=== PATIENT | female | born 1950 | race Caucasian/White ===

== ENCOUNTER 2018-05-16 16:32 | Emergency (ER) | payer MEDICARE ==
[2018-05-16] MEDS ORDERED: NS 0.9% 1000 ML* 1,000 ML IV ONE (16:43)
[2018-05-16] MEDS ORDERED: NS 0.9% 1000 ML*IV.FLUID IV ONE (16:43)
--- NOTE | 2018-05-16 16:50 | ED ---
Shortness of Breath - HPI Summary HPI Summary: This is scribe Brittney Keller documenting for attending Deepak Sue MD. Pt is a 67 y/o female BIBA who presents to ED c/o SOB. She states after walking up the brock stairs at [facility], she became SOB with wheezing, fatigued, and diaphoretic. Pt states she felt like she was going to pass out. She denies any cough or CP. Pt was hypotensive upon EMS arrival, and was given Duoneb treatment by them. Her symptoms have since improved, but she still feels SOB. PMHx asthma. Pt is a former smoker. - History of Current Complaint Chief Complaint: EDShortnessOfBreath Time Seen by Provider: 05/16/18 16:37 Hx Obtained From: Patient Onset/Duration: Sudden Onset, Still Present Dyspnea At: Rest Aggrevating Factors: Other - Exertion- climbing stairs Alleviating Factors: Bronchodilators Associated Signs & Symptoms: Diaphoresis - Allergy/Home Medications Allergies/Adverse Reactions: Allergies Allergy/AdvReac Type Severity Reaction Status Date / Time acetaminophen [From Tylenol] Allergy Shortness Verified 05/16/18 16:39 of Breath aspirin Allergy Shortness Verified 05/16/18 16:39 of Breath Sulfa (Sulfonamide Allergy Shortness Verified 05/16/18 16:39 Antibiotics) of Breath PMH/Surg Hx/FS Hx/Imm Hx Respiratory History: Reports: Hx Asthma Musculoskeletal History: Reports: Hx Back Problems Infectious Disease History: No Infectious Disease History: Denies: Traveled Outside the [place] in Last 30 Days - Family History Known Family History: Negative: Hypertension - Social History Alcohol Use: Rare Substance Use Type: Reports: None Smoking Status (MU): Former Smoker Review of Systems Positive: Fatigue, Skin Diaphoresis Negative: Chest Pain Positive: Shortness Of Breath. Negative: Cough All Other Systems Reviewed And Are Negative: Yes Physical Exam - Summary Physical Exam Summary: VITAL SIGNS: Reviewed. GENERAL: Patient is a well-developed and nourished FEMALE who is lying comfortable in the stretcher. Patient is not in any acute respiratory distress. HEAD AND FACE: No signs of trauma. No ecchymosis, hematomas or skull depressions. No sinus tenderness. EYES: PERRLA, EOMI x 2, No injected conjunctiva, no nystagmus. EARS: Hearing grossly intact. Ear canals and tympanic membranes are within normal limits. MOUTH: Oropharynx within normal limits. NECK: Supple, trachea is midline, no adenopathy, no JVD, no carotid bruit, no c- spine tenderness, neck with full ROM. CHEST: Symmetric, no tenderness at palpation LUNGS: Clear to auscultation bilaterally. No wheezing or crackles. CVS: Regular rate and rhythm, S1 and S2 present, no murmurs or gallops appreciated. ABDOMEN: Soft, non-tender. No signs of distention. No rebound no guarding, and no masses palpated. Bowel sounds are normal. EXTREMITIES: FROM in all major joints, no edema, no cyanosis or clubbing. NEURO: Alert and oriented x 3. No acute neurological deficits. Speech is normal and follows commands. SKIN: Dry and warm Triage Information Reviewed: Yes Vital Signs On Initial Exam: Initial Vitals Temp Pulse Resp BP Pulse Ox 96.3 F 73 20 96/61 100 05/16/18 16:37 05/16/18 16:37 05/16/18 16:37 05/16/18 16:37 05/16/18 16:37 Vital Signs Reviewed: Yes Diagnostics - Vital Signs Vital Signs Temp Pulse Resp BP Pulse Ox 05/16/18 16:37 96.3 F 73 20 96/61 100 - Laboratory Result Diagrams: 05/16/18 17:27 05/16/18 17:27 Lab Statement: Any lab studies that have been ordered have been reviewed, and results considered in the medical decision making process. - EKG 17:30 Cardiac Rate: NL - 64 bpm EKG Rhythm: Sinus Rhythm EKG Interpretation: No ST elevation. Diffuse ST abnormalities. Course/Dx - Course Assessment/Plan: This patient is a 67-year-old female who presents to the emergency department with a chief complaint of shortness of breath. The patient was given by EMS duo nebs and the symptoms had significantly improved. At this time the patient reports that she is asymptomatic. Test results shows a workup was a count of 15.4, hemoglobin 11.8,glucose of 124, lactic acid is 4.1 , and AST of 12. In the ED course the patient was given ibuprofen fluids since the patient was slightly hypertensive. After the fluid challenge the blood pressure came up to plantar and 38/83, she saturated 100% on room air, heart rate is 66 and the respiratory rate 18. Reexamination of the lungs the lungs are clear to auscultation bilaterally, there is no wheezing, no crackles or signs of infection. CXR: No acute pathology. Since the patients WBC's count is increased, the patient has an increase lactic acid I will place the patient in azithromycin since the patient is having some dry cough. I believe the patient is developing bronchitis. At this point I discussed my findings and test results with the patient and the need to follow-up with primary care physician. I answered all her questions and concerns and she has no further questions. Patient is hemodynamically stable alert and oriented 3. - Diagnoses Provider Diagnoses: Asthma exacerbation, Bronchitis Discharge - Sign-Out/Discharge Documenting (check all that apply): Patient Departure - Discharge - Discharge Plan Condition: Stable Disposition: HOME Prescriptions: Azithromycin TAB* [Zithromax TAB (Z-NEISHA) 250 mg #6 tabs] 250 mg PO DAILY #4 tab Patient Education Materials: Asthma (ED), Acute Bronchitis (ED) Referrals: [facility] [place] [facility]ERR[facility] [Outside] - 3 Days Additional Instructions: RETURN TO THE ED FOR ANY WORSENING OR NEW SYMPTOMS. - Billing Disposition and Condition Condition: STABLE Disposition: Home
[2018-05-16 17:35] LABS: ABS Basophils 0.1 10^3/ul (0-0.2); ABS Eosinophils 0 10^3/ul (0-0.6); ABS Lymphocytes 1.2 10^3/ul (1.0-4.8); ABS Monocytes 0.9 10^3/ul (0-0.8); ABS Neutrophils 13.1 10^3/ul (1.5-7.7); ABS Nucleated RBC 0 10^3/ul; Eosinophil % 0.3 % (0-6); Hematocrit 35 % (35-47); Hemoglobin 11.8 g/dl (12.0-16.0); Lymphocyte % 7.8 % (25-47); Mean Corpuscular HGB Conc 34 g/dl (31-36); Mean Corpuscular Hemoglobin 31 pg (27-31); Mean Corpuscular Volume 91 fL (80-97); Mean Platelet Volume 9.4 um3 (7.4-10.4); Nucleated Red Blood Cells % 0; Platelet Count 177 10^3/ul (150-450); Red Cell Distribution Width 13 % (10.5-15); White Blood Count 15.4 10^3/ul (3.5-10.8)
[2018-05-16 17:51] LABS: EGFR Non-African American 59.6 (>60)
[2018-05-16] MEDS ORDERED: Azithromycin TAB* 250 MG PO ONE (18:37)
[2018-05-16 19:16] VITALS: BP 131/93
--- NOTE | 2018-05-17 11:40 | RAD ---
INDICATION: Difficulty breathing. History of asthma. COMPARISON: No relevant prior exams available on the [facility] PACS for comparison. TECHNIQUE: Dual energy PA and routine lateral views of the chest were obtained. REPORT: Elevated lung volumes and both diffuse mild prominence of the interstitial markings and patchy rarefaction of the mid to upper lung zone interstitial markings. No focal pulmonary lesion, compelling alveolar consolidation, pleural effusion, pneumothorax. Negative for cardiomegaly. Unremarkable central pulmonary vasculature. Moderately tortuous thoracic aorta. IMPRESSION: #. Stigmata of obstructive lung disease. No acute pulmonary or cardiac process evident.
== END 2018-05-16 19:15 | disposition home or self-care (01) ==
LOC: ED 16:32
DX: J45.901 Unspecified asthma with (acute) exacerbation (principal); R61 Generalized hyperhidrosis; R53.83 Other fatigue; Z88.6 Allergy status to analgesic agent; Z88.2 Allergy status to sulfonamides; Z87.891 Personal history of nicotine dependence
CPT/HCPCS: 36415; 71046; 80053; 82550; 82553; 83605; 83880; 84484; 85025; 86140; 93005; 96360; 99283; A9270-GY